=== PATIENT | male | born 1995 | race Two or more races ===

== ENCOUNTER 2021-01-01 07:25 | Outpatient (CLI) | payer OTHER | END 2021-01-01 07:26 | disposition home or self-care (01) | LOC: LAB 07:25 | DX: Z03.818 Encounter for observation for suspected exposure to other biological agents ruled out (principal) ==

== ENCOUNTER 2021-03-18 12:15 | Outpatient (CLI) | payer OTHER | END 2021-03-18 16:30 | disposition home or self-care (01) | LOC: LAB 12:15 | PROVIDERS: ATTEND Emergency Medicine Pediatric Emergency Medicine | DX: Z03.818 Encounter for observation for suspected exposure to other biological agents ruled out (principal) ==

== ENCOUNTER 2021-05-16 15:43 | Outpatient (CLI) | payer OTHER | END 2021-05-16 19:00 | disposition home or self-care (01) | LOC: LAB 15:43 | PROVIDERS: ATTEND Emergency Medicine Pediatric Emergency Medicine | DX: Z20.822 Contact with and (suspected) exposure to COVID-19 (principal) ==